=== PATIENT | female | born 1970 | race Caucasian/White ===

== ENCOUNTER 2024-05-07 17:28 | Emergency (ER) | payer OTHER, SELFPAY ==
[2024-05-07 17:36] VITALS: BP 216/142
[2024-05-07 18:01] LABS: Hematocrit 43.3 % (37.0-47.0); Hemoglobin 15.6 g/dL (12.0-16.0); Mean Corpuscular Hgb 30.2 pg (27.0-31.0); Mean Corpuscular Volume 83.9 fL (81.0-99.0); Mean Platelet Volume 8.4 fL (7.4-10.4); Platelet Count 285 10^3/uL (130-400); Red Blood Cell Count 5.16 10^6/uL (4.20-5.40); Red Cell Dist. Width 13.2 % (11.5-14.5); White Blood Cell Count 8.3 10^3/uL (4.8-10.8)
[2024-05-07 18:07] LABS: ALT (SGPT) 25 U/L (0-35); AST (SGOT) 32 U/L (14-36); Albumin 5.1 g/dl (3.5-5.0); Alkaline Phosphatase 95 U/L (38-126); Blood Urea Nitrogen 14 mg/dl (7-17); Calcium 10.3 mg/dl (8.4-10.2); Carbon Dioxide 26 mmol/L (22-30); Chloride 96 mmol/L (98-107); Glucose 96 mg/dl (70-99); Potassium 5.1 mmol/L (3.5-5.1); Sodium 136 mmol/L (135-145); Total Bilirubin 0.6 mg/dl (0.2-1.3); Total Protein 7.4 g/dl (6.3-8.2); eGFR > 60.00
[2024-05-07 18:16] LABS: Troponin I < 0.012 ng/ml
[2024-05-07 18:17] LABS: % Basophils 1.7 % (0-2); % Eosinophils 3.2 % (0-6); % Immature Granulocytes 0.1 % (0-0.5); % Monocytes 7.9 % (1.7-9.3); % Neutrophils 36.1 % (42.2-75.2); Absolute Basophils 0.1 10^3/uL (0-0.2); Absolute Eosinophils 0.3 10^3/uL (0-0.7); Absolute Lymphocytes 4.2 10^3/uL (1.2-3.4); Absolute Monocytes 0.7 10^3/uL (0.1-0.6); Nucleated Red Blood Cells % 0 %
[2024-05-07 18:22] VITALS: BP 187/114
--- NOTE | 2024-05-07 18:43 | ED.GENMED ---
History of Present Illness
General
Chief Complaint: Blood Pressure Problem
Source: patient
Exam Limitations: none
Time Seen by Provider: 05/07/24 18:03
History of Present Illness
History of Present Illness:
This is a 53 year old female that comes in with c/o hypertension. States that she was at the Neurologist and her BP was elevated. states that her Family doctor told her to come to the ER States that she has a history of Migraines and always has a
headache. States that her headache is on the left sided on the head in the temporal area. Denies any fever, chills, chest pain, SOB, abd pain, nausea, vomiting, diarrhea, dizziness, urinary burning.
Past History
Past History
ED Past Medical History: Asthma, HTN, Hypercholesterolemia, Other (Diverticulitis, Neck pain, trigeminal neuralgia, Sinusitis) and Other (Trigeminal Neuralgia)
ED Past Surgical History: Other (Jeremiah foot surg. Sinus surgery Partial Left colectomy, Microvascular decompression)
Social History
Tobacco: Smoker
Alcohol: None
Personal:
Living: with family
Employment: Employed
Family History
Family History: CAD
Review of Systems
Review of Systems
All Other Systems: ROS reviewed and negative except as documented in HPI and ROS
Constitutional: Reports no symptoms; Denies fever or chills
EENT: Reports no symptoms
Respiratory: Reports no symptoms; Denies cough or trouble breathing
Cardiac: Reports no symptoms; Denies chest pain
ABD/GI: Reports no symptoms; Denies abdominal pain, nausea, vomiting or diarrhea
: Reports no symptoms; Denies dysuria, frequency or urgency
Musculoskeletal: Reports no symptoms
Skin: Reports no symptoms
Neurological: Reports headache; Denies dizzy
Psychiatric: Reports no symptoms
Phy Exam
General Physical Exam
General Presentation: well appearing and no apparent distress
General age: appears stated age
General Skin: warm and dry
General Habitus: normal
General Mental: alert
General Hydration: dry mucous membranes
ENT Exam
ENT Exam: TM's normal, pharynx normal and neck supple
Eye Exam
Eye Exam: EOMI
Cardiovascular Exam
Cardiovascular Exam: regular rate/rhythm, no edema, no murmur and normal peripheral pulses
Pulmonary Exam
Pulmonary Exam: lungs clear, no respiratory distress, no rales, chest non tender, no crackles, no rhonchi, no wheezing and no cough
Gastrointestinal Exam
Gastrointestinal Exam: normal bowel sounds, non tender, soft, no organomegaly, no pulsatile mass and non distended
Musculoskeletal Exam
Musculoskeletal Exam: full ROM and no edema
Skin Exam
Skin Exam: normal color, warm/dry, no rash and no petechia
Psychiatric Exam
Psychiatric Exam: normal mood/affect
Course
Orders/Labs/Results
Orders:
Orders
05/07/24 17:39
ECG [Electrocardiogram (*1)] Urgent
Reason for Study: Hypertension, Benign
CT Head W/o Iv Contrast Urgent
Comment:
Reason For Exam: high blood pressure with headache
05/07/24 17:40
EKG- Treatment ONCE
05/07/24 17:44
Complete Blood Count/With Diff Urgent
Comprehensive Metabolic Panel Urgent
Troponin I Urgent
05/07/24 18:42
HydrALAZINE [Apresoline] 5 mg IV NOW STA
Metoprolol [Lopressor] 25 mg PO NOW STA
05/07/24 19:16
HydrALAZINE [Apresoline] 5 mg IV NOW STA
Abnormal Lab Results
05/07/24
17:44
Absolute Lymphs (auto) 4.2 H 10^3/uL
(1.2-3.4)
Absolute Monos (auto) 0.7 H 10^3/uL
(0.1-0.6)
Neutrophils % 36.1 L %
(42.2-75.2)
Chloride 96 L mmol/L
(98-107)
Calcium 10.3 H mg/dl
(8.4-10.2)
Albumin 5.1 H g/dl
(3.5-5.0)
05/07/24 17:44
05/07/24 17:44
Chloride slightly low. Troponin <0.012
Vital Signs
Initial and Last Documented VS:
Initial Vital Signs
Temp Pulse Resp BP Pulse Ox
98.2 F 99 18 216/142 98
05/07/24 17:36 05/07/24 17:36 05/07/24 17:36 05/07/24 17:36 05/07/24 17:36
Last Documented Vital Signs
Temp Pulse Resp BP Pulse Ox
98.2 F 86 18 171/108 98
05/07/24 17:36 05/07/24 19:29 05/07/24 17:36 05/07/24 19:29 05/07/24 18:22
MDM/Problems Addressed
Differential Diagnosis Includes:
Hypertension,
MDM/Problems Addressed:
This is a 53 year old female that comes in with c/o Hypertension. States that she was in the neurologist office and she was told to come to the ER as her BP was elevated. States that she has a headache but she always has a headache .
will get labs, CT head and medication for Hypertension
Back into see patient. Explained that her Bp is down o 147/85. will Add Hydralazine to patient medication. Patient is to follow up with the family doctor for recheck and explained that they may change her medication as they see fit. Will discharge
patient home.
Chronic conditions affecting care: HTN and Other (Migraines)
Acute Exacerbation and/or Progression of Chronic Illness: HTN
*Radiology
Radiology exam reviewed: radiology read reviewed (CT head-No acute intracranial abnormality noted)
*Pulse Oximetry
Patient hypoxic: no
*EKG
Interpreted by ED Provider?: Yes
Heart Rate: 87
Rate: normal
Rhythm: sinus
[place]: normal axis
Interval: normal interval
QRS Pattern: normal QRS
Ischemia: no ischemia
*Gas Distribution Supervisor Interpretation
Rate: normal
Heart Rate: 89
Rhythm: sinus
*Critical Care Note
Total Time (30-74mins, 75-104mins- exclusive of procedures): Not Applicable
ED Attending Note
-
Portions of this chart may have been created with voice recognition software.� Occasional wrong word or��sound alike� substitutions may have occurred due to the inherent limitations of voice recognition software.
Discharge Plan
Departure
Patient Disposition: Home (Routine Discharge)
Date of Disposition: 05/07/24
Time of Disposition: 20:03
Patient with high blood pressure during this ER visit?: Yes
Condition: Good
Covid-19: Not Applicable
Discharge Problem:
Hypertension
Instructions: High Blood Pressure (DC), BLOOD PRESSURE
Prescriptions:
New
hydralazine 10 mg tablet
5 mg PO TID Qty: 15 0RF
No Action
oxcarbazepine 300 MG tablet
600 mg PO BID
oxycodone 5 MG tablet
5 mg PO .5X DAILY
Patient Comments:
05/07/24: last filled 04/25/24 for 150 tablets over 30 days
docosahexaenoic acid-epa 1 CAP capsule
1 cap PO DAILY
Glucosamine Sulf-Chondroitin 1 EACH capsule
1 cap PO DAILY
Estroven 155 MG capsule
1 cap PO HS
carvedilol 6.25 mg Tablet
6.25 mg PO BID
Theragen Tablet
1 tab PO DAILY
meloxicam 7.5 mg Tablet
7.5 mg PO BIDPRN PRN (Reason: moderate pain)
alprazolam 0.25 mg Tablet
0.25 mg PO DAILYPRN PRN (Reason: anxiety)
Patient Comments:
05/07/24: last filled 11/20/22 for 90 tablets over 30 days at [facility] per [facility].
buspirone 10 mg Tablet
10 mg PO BID
vitamin B complex Tablet
1 tab PO DAILY
vitamin E 268 mg (400 unit) Capsule
268 mg PO HS
loratadine [Claritin] 10 mg Tablet
10 mg PO DAILY
losartan-hydrochlorothiazide 100-12.5 mg Tablet
1 tab PO DAILY
magnesium oxide 200 mg magnesium Tablet
200 mg PO HS
Nurtec ODT 75 mg Tablet,Disintegrating
75 mg PO DAILYPRN PRN (Reason: migraine)
Neuriva Original 100-100 mg Capsule
1 cap PO DAILY
Referrals:
UNKNOWN - PT DOES,NOT KNOW [Unknown Provider] -
Activity Restrictions/Additional Instructions:
As discussed our blood work and CT of the head are normal. Your BP has come down with medication. You have had a scrip sent to your Pharmacy. Please take this 3 times daily with your other medication. Follow up with the family doctor in the next 2-3
days to have your blood pressure recheck. They may decided to change your medication. Monitor your blood pressure at home. Please sit in a chair with feet flat on the floor and your arm level with your hear for 5 min before taking your blood
pressure. IF YOU HAVE HYPERTENSION AGAIN OR YOU HAVE ANY OTHER CONCERNS PLEASE RETURN TO THE EMERGENCY ROOM.
Interventions
Interventions:
*Risk Screen - Suicide Last Done: 05/07/24 17:36
*General Assessment Last Done: 05/07/24 17:36
*Neglect/Abuse Screening Last Done: 05/07/24 17:36
ED- Cardiac Assessment Last Done: 05/07/24 18:23
ED- Neurological Assessment Last Done: 05/07/24 18:23
ED- Pulmonary Assessment Last Done: 05/07/24 18:24
Discharge Date and Time
Print Language: HUNGARIAN
[2024-05-07] MEDS: LOPRESSOR 25 MG PO (18:53)
[2024-05-07] MEDS: APRESOLINE 5 MG IV ×2 (18:55→19:29)
[2024-05-07 19:14] VITALS: BP 159/101
[2024-05-07 19:59] VITALS: BP 150/88
== END 2024-05-07 20:13 | disposition home or self-care (01) ==
LOC: EMR 17:28
PROVIDERS: Emergency Medicine; EMERGENCY PHYSICIAN Emergency Medicine; FAMILY PHYSICIAN Family Medicine
DX: I10 Essential (primary) hypertension (principal); J45.909 Unspecified asthma, uncomplicated; E78.00 Pure hypercholesterolemia, unspecified; F17.200 Nicotine dependence, unspecified, uncomplicated; Z82.49 Family history of ischemic heart disease and other diseases of the circulatory system; Z90.49 Acquired absence of other specified parts of digestive tract
CPT/HCPCS: 99284; 70450; 80053; 84484; 85025; 93005

== ENCOUNTER 2024-08-10 15:43 | Emergency (ER) | payer OTHER, SELFPAY ==
[2024-08-10 15:47] VITALS: BP 221/125
[2024-08-10 16:20] VITALS: BP 216/122
--- NOTE | 2024-08-10 17:18 | ED.GENMED ---
History of Present Illness
General
Chief Complaint: Blood Pressure Problem
Source: patient
Exam Limitations: none
Time Seen by Provider: 08/10/24 16:57
Nursing documentation reviewed up to this point in time: agreed with
History of Present Illness
History of Present Illness:
Patient to ED with complaint of elevated blood pressure. States she has a long history of hypertension, reports compliance with her medications. States she developed URI symptoms on
Past History
Past History
ED Past Medical History: Asthma, HTN, Hypercholesterolemia, Other (Diverticulitis, Neck pain, trigeminal neuralgia, Sinusitis) and Other (Trigeminal Neuralgia)
ED Past Surgical History: Other (Jeremiah foot surg. Sinus surgery Partial Left colectomy, Microvascular decompression)
Social History
Tobacco: Smoker
Alcohol: None
Personal:
Living: with family
Employment: Employed
Family History
Family History: CAD
Phy Exam
General Physical Exam
General Presentation: well appearing and no apparent distress
General age: appears stated age
General Skin: warm and dry
General Habitus: normal
General Mental: alert
Cardiovascular Exam
Cardiovascular Exam: regular rate/rhythm and no edema
Pulmonary Exam
Pulmonary Exam: lungs clear and no respiratory distress
Neurological Exam
Neurological Exam: alert and oriented x3
Musculoskeletal Exam
Musculoskeletal Exam: full ROM
Skin Exam
Skin Exam: normal color, warm/dry and no rash
Psychiatric Exam
Psychiatric Exam: normal mood/affect
Course
Orders/Labs/Results
Orders:
Orders
08/10/24 15:45
EKG [Electrocardiogram (*1)] Urgent
Reason for Study: Abnormal EKG
08/10/24 15:46
EKG- Treatment ONCE
08/10/24 17:13
HydrALAZINE [Apresoline] 10 mg IV NOW STA
08/10/24 17:14
CR Chest - 2 Views Urgent
Comment:
Reason For Exam: [email or web address]
08/10/24 17:15
Complete Blood Count/With Diff Urgent
Comprehensive Metabolic Panel Urgent
Troponin I Urgent
08/10/24 17:17
Ipratropium/Albuterol Sulfate [Duoneb] 3 ml INH R NOW STA
08/10/24 17:42
0.9% Sodium Chloride 1000 ml [Nss] 1,000 ml IV BOLUS
08/10/24 17:45
COVID-19 Antigen Urgent
Source: Nasal Swab
Influenza A+B Rapid Molecular Urgent
ZEENAT Source: Nasal Swab
Specimen Description:
Abnormal Lab Results
08/10/24
17:15
Hgb 16.4 H g/dL
(12.0-16.0)
Absolute Monos (auto) 0.7 H 10^3/uL
(0.1-0.6)
Monocytes % 10.4 H %
(1.7-9.3)
Sodium 126 L mmol/L
(135-145)
Chloride 90 L mmol/L
(98-107)
Creatinine 0.5 L mg/dL
(0.6-1.0)
08/10/24 17:15
08/10/24 17:15
Vital Signs
Initial and Last Documented VS:
Initial Vital Signs
Pulse Resp BP Pulse Ox
85 19 221/125 94
08/10/24 15:47 08/10/24 15:47 08/10/24 15:47 08/10/24 15:47
Last Documented Vital Signs
Pulse Resp BP Pulse Ox
88 15 188/102 98
08/10/24 19:06 08/10/24 19:06 08/10/24 19:06 08/10/24 19:06
*Critical Care Note
Total Time (30-74mins, 75-104mins- exclusive of procedures): Not Applicable
Update Note
Update Note:
Patient to ED for elevated blood pressure readings. She is asymptomatic of elevated BP. Sent to ED by after eval there today. Reports complliance with her current regimen of Carvidolol BID, Losartan/HCTZ, and Hydralazine. She was here in May
for same. hydralazine started at that time. She has been checking her blood pressure since and reports it has remained high but has not followed up with her PCP. Given additional dose of Hydralazine in ED. BP now 180/100. Will recommend
increasing hydralazine to 20mg tid. Labs reviewed. Na 126. No prior history of hyponatremia. She reports diarrhea x 24 hours. SHe was placed on azithromycin by 4 days ago for URI symptoms and has had diarrhea since. Instructed to refrain
from last dose. Given IVF in dept. Will follow up with PCP in AM. Repeat labs in 2 days. Case discussed with Nate Lopez who agrees with findings and plan.
ED Attending Note
-
Portions of this chart may have been created with voice recognition software.� Occasional wrong word or��sound alike� substitutions may have occurred due to the inherent limitations of voice recognition software.
Discharge Plan
Departure
Patient Disposition: Home (Routine Discharge)
Date of Disposition: 08/10/24
Time of Disposition: 20:00
Patient with high blood pressure during this ER visit?: No
Condition: Good
Covid-19: Not Applicable
Discharge Problem:
Hypertension, Acute hyponatremia
Instructions: High Blood Pressure (DC), Hyponatremia
Prescriptions:
New
hydralazine 10 mg tablet
20 mg PO TID Qty: 84 0RF
No Action
oxcarbazepine 300 MG tablet
600 mg PO BID
oxycodone 5 MG tablet
5 mg PO 5/D
Patient Comments:
05/07/24: last filled 04/25/24 for 150 tablets over 30 days
docosahexaenoic acid-epa 1 CAP capsule
1 cap PO DAILY
Glucosamine Sulf-Chondroitin 1 EACH capsule
1 cap PO DAILY
Estroven 155 MG capsule
1 cap PO HS
carvedilol 6.25 mg Tablet
6.25 mg PO BID
Theragen Tablet
1 tab PO DAILY
meloxicam 7.5 mg Tablet
7.5 mg PO BIDPRN PRN (Reason: moderate pain)
vitamin B complex Tablet
1 tab PO DAILY
vitamin E 268 mg (400 unit) Capsule
268 mg PO HS
loratadine [Claritin] 10 mg Tablet
10 mg PO DAILY
losartan-hydrochlorothiazide 100-12.5 mg Tablet
1 tab PO DAILY
magnesium oxide 200 mg magnesium Tablet
200 mg PO HS
Nurtec ODT 75 mg Tablet,Disintegrating
75 mg PO DAILYPRN PRN (Reason: migraine)
Neuriva Original 100-100 mg Capsule
1 cap PO DAILY
acetaminophen [Tylenol] 325 mg Tablet
650 mg PO Q6HPRN PRN (Reason: MILD PAIN)
azithromycin 250 mg Tablet
0 mg PO .COMPLEX
Rx Instructions:
For 250 mg dose pack: take 500 mg today (day 1), then 250 mg for 4 days (days 2-5)
Coricidin HBP Cold and Flu 2-325 mg Tablet
1 tab PO DAILYPRN PRN (Reason: COUGH)
guaifenesin [Mucinex] 600 mg Tablet Extended Release 12hr
600 mg PO BIDPRN PRN (Reason: COUGH)
hydralazine 10 mg tablet
10 mg PO TID
Referrals:
Krystyna Cortes DO [Family Provider] - Tomorrow
Activity Restrictions/Additional Instructions:
Increase Hydralazine to 20mg every 8 hours.
Interventions
Interventions:
*Risk Screen - Suicide Last Done: 08/10/24 15:47
*General Assessment Last Done: 08/10/24 15:47
*Neglect/Abuse Screening Last Done: 08/10/24 15:47
ED- Fall Risk Assessment Last Done: 08/10/24 16:10
*Nursing Disposition Last Done: 08/10/24 20:35
ED- Cardiac Assessment Last Done: 08/10/24 16:10
ED- Neurological Assessment Last Done: 08/10/24 16:10
ED- Pulmonary Assessment Last Done: 08/10/24 16:10
Discharge Date and Time
Discharge Date/Time: 08/10/24 20:50
Print Language: GRENADIAN
[2024-08-10 17:23] LABS: % Basophils 1.3 % (0-2); % Eosinophils 2.6 % (0-6); % Immature Granulocytes 0.3 % (0-0.5); % Lymphocytes 21.3 % (20.5-51.1); % Monocytes 10.4 % (1.7-9.3); % Neutrophils 64.1 % (42.2-75.2); Absolute Basophils 0.1 10^3/uL (0-0.2); Absolute Eosinophils 0.2 10^3/uL (0-0.7); Absolute Lymphocytes 1.5 10^3/uL (1.2-3.4); Absolute Monocytes 0.7 10^3/uL (0.1-0.6); Absolute Neutrophils 4.4 10^3/uL (1.4-6.5); Hematocrit 46.6 % (37.0-47.0); Hemoglobin 16.4 g/dL (12.0-16.0); Mean Corp Hgb Conc. 35.2 g/dL (33.0-37.0); Mean Corpuscular Hgb 30.6 pg (27.0-31.0); Mean Corpuscular Volume 86.9 fL (81.0-99.0); Mean Platelet Volume 8.6 fL (7.4-10.4); Nucleated Red Blood Cells % 0 %; Platelet Count 224 10^3/uL (130-400); Red Blood Cell Count 5.36 10^6/uL (4.20-5.40); Red Cell Dist. Width 12.5 % (11.5-14.5); White Blood Cell Count 6.9 10^3/uL (4.8-10.8)
[2024-08-10] MEDS: APRESOLINE 10 MG IV (17:24)
[2024-08-10] MEDS: DUONEB 3 ML INH (17:24)
[2024-08-10 17:40] LABS: ALT (SGPT) 28 U/L (0-35); AST (SGOT) 28 U/L (14-36); Albumin 4.7 g/dl (3.5-5.0); Alkaline Phosphatase 96 U/L (38-126); Blood Urea Nitrogen 9 mg/dl (7-17); Calcium 9.1 mg/dl (8.4-10.2); Carbon Dioxide 27 mmol/L (22-30); Chloride 90 mmol/L (98-107); Glucose 96 mg/dl (70-99); Potassium 4.2 mmol/L (3.5-5.1); Sodium 126 mmol/L (135-145); Total Bilirubin 0.5 mg/dl (0.2-1.3); Total Protein 7.1 g/dl (6.3-8.2); eGFR > 60.00
[2024-08-10 17:47] LABS: Troponin I < 0.012 ng/ml
[2024-08-10] MEDS: NSS 1000 IV (18:00)
[2024-08-10 18:17] LABS: COVID-19 Antigen Negative (Negative)
[2024-08-10 19:06] VITALS: BP 188/102
== END 2024-08-10 20:50 | disposition home or self-care (01) ==
LOC: EMR 15:43
PROVIDERS: Nurse Practitioner; EMERGENCY PHYSICIAN Student in an Organized Health Care Education/Training Program; FAMILY PHYSICIAN Family Medicine
DX: E87.1 Hypo-osmolality and hyponatremia (principal); I10 Essential (primary) hypertension; E78.00 Pure hypercholesterolemia, unspecified; J45.909 Unspecified asthma, uncomplicated; F17.200 Nicotine dependence, unspecified, uncomplicated; Z90.49 Acquired absence of other specified parts of digestive tract
CPT/HCPCS: 94640; 96374; 96361; 99284; 71046; 80053; 84484; 85025; 87502; 87811; 93005

== ENCOUNTER 2025-05-28 17:59 | Emergency (ER) | payer OTHER, SELFPAY ==
[2025-05-28 18:07] VITALS: BP 234/145
[2025-05-28 19:01] VITALS: BP 230/120
[2025-05-28] MEDS: REGLAN 10 MG IV (19:16)
[2025-05-28] MEDS: BENADRYL 25 MG IV (19:18)
[2025-05-28] MEDS: TRANDATE 10 MG IV (19:20)
[2025-05-28 19:22] VITALS: BP 170/101
[2025-05-28 19:23] LABS: Hematocrit 44.6 % (37.0-47.0); Hemoglobin 15.6 g/dL (12.0-16.0); Mean Corp Hgb Conc. 35.0 g/dL (33.0-37.0); Mean Corpuscular Volume 87.3 fL (81.0-99.0); Nucleated Red Blood Cells % 0 %; Platelet Count 302 10^3/uL (130-400); Red Cell Dist. Width 13.5 % (11.5-14.5)
[2025-05-28 19:24] VITALS: BMI 35.2
[2025-05-28 19:41] LABS: ALT (SGPT) 28 U/L (0-35); AST (SGOT) 30 U/L (14-36); Albumin 4.8 g/dl (3.5-5.0); Alkaline Phosphatase 99 U/L (38-126); Blood Urea Nitrogen 14 mg/dl (7-17); Calcium 9.7 mg/dl (8.4-10.2); Carbon Dioxide 28 mmol/L (22-30); Chloride 99 mmol/L (98-107); Estimated Creatinine Clearance > 125 ml/min; Glucose 98 mg/dl (70-99); Potassium 4.5 mmol/L (3.5-5.1); Sodium 132 mmol/L (135-145); Total Protein 7.3 g/dl (6.3-8.2); eGFR > 60.00
[2025-05-28 19:51] LABS: Troponin I 0.013 ng/ml
[2025-05-28 20:02] VITALS: BP 178/104
[2025-05-28 21:00] VITALS: BP 157/93
--- NOTE | 2025-05-28 21:51 | ED.GENMED ---
History of Present Illness
<DINORA Vazquez Last Filed: 05/29/25 02:01>
General
Chief Complaint: Blood Pressure Problem
Source: patient
Exam Limitations: none
Time Seen by Provider: 05/28/25 18:46
Nursing documentation reviewed up to this point in time: agreed with
History of Present Illness
History of Present Illness:
see MDM
Past History
<DINORA Vazquez Last Filed: 05/29/25 02:01>
Past History
ED Past Medical History: Asthma, HTN, Hypercholesterolemia, Other (Diverticulitis, Neck pain, trigeminal neuralgia, Sinusitis) and Other (Trigeminal Neuralgia)
ED Past Surgical History: Other ([facility] foot surg. Sinus surgery Partial Left colectomy, Microvascular decompression)
Social History
Tobacco: Smoker
Alcohol: None
Personal:
Living: with family
Employment: Employed
Family History
Family History: CAD
Review of Systems
<DINORA Vazquez Last Filed: 05/29/25 02:01>
Review of Systems
Allergies reviewed?: Yes
All Other Systems: Not applicable
Phy Exam
<DINORA Vazquez Last Filed: 05/29/25 02:01>
Physical Exam
Physical Exam:
GENERAL: Alert , in no apparent distress
HEAD: NCAT
EYE: pupils equal and reactive, no nystagmus, no photophobia
NECK: Supple,full rom, nontender
ENT: o/p clr, mmm.
CARDIAC: Regular rate and rhythm . no edema
LUNGS: Clear breath sounds bilaterally, no acute respiratory distress, no wheezes/rales/rhonchi
ABDOMEN: Soft, without focal tenderness, no r/g, no cvat
NEUROLOGICAL: Alert and orientedx 4, cn intact, no facial asymmetry, 5/5 strength in UE/LE, sensation intact, romberg neg, ambulates without assistance, neg pronator drift
SKIN: Warm and dry, skin intact.
MUSCULOSKELETAL: No edema, well perfused.
PSYCH: Normal and appropriate interaction.
Course
<Zakia Franco PA-C - Last Filed: 05/29/25 02:01>
Orders/Labs/Results
Orders:
Orders
05/28/25 18:12
Electrocardiogram (*1) Urgent
Reason for Study: Fatigue / Weakness
EKG- Treatment ONCE
05/28/25 19:05
CT Head & Neck Angio W/wo IV Urgent
Comment:
Reason For Exam: headache, neck pain, severely elevated bp
Diphenhydramine [Benadryl] 25 mg IV NOW STA
Labetalol HCl [Trandate] 10 mg IV NOW STA
Metoclopramide [Reglan] 10 mg IV NOW STA
05/28/25 19:11
Complete Blood Count/With Diff Urgent
Comprehensive Metabolic Panel Urgent
Troponin I Urgent
Abnormal Lab Results
05/28/25
19:11
Absolute Lymphs (auto) 4.2 H 10^3/uL
(1.2-3.4)
Absolute Monos (auto) 0.8 H 10^3/uL
(0.1-0.6)
Neutrophils % 38.4 L %
(42.2-75.2)
Sodium 132 L mmol/L
(135-145)
05/28/25 19:11
05/28/25 19:11
Vital Signs
Initial and Last Documented VS:
Initial Vital Signs
Temp Pulse Resp BP Pulse Ox
36.4 C 92 18 234/145 98
05/28/25 18:07 05/28/25 18:07 05/28/25 18:07 05/28/25 18:07 05/28/25 18:07
Last Documented Vital Signs
Temp Pulse Resp BP Pulse Ox
36.4 C 82 18 157/93 98
05/28/25 18:07 05/28/25 19:20 05/28/25 18:07 05/28/25 21:00 05/28/25 21:53
<Nils Nam MD - Last Filed: 05/28/25 23:14>
Orders/Labs/Results
Orders:
Orders
05/28/25 18:12
Electrocardiogram (*1) Urgent
Reason for Study: Fatigue / Weakness
EKG- Treatment ONCE
05/28/25 19:05
CT Head & Neck Angio W/wo IV Urgent
Comment:
Reason For Exam: headache, neck pain, severely elevated bp
Diphenhydramine [Benadryl] 25 mg IV NOW STA
Labetalol HCl [Trandate] 10 mg IV NOW STA
Metoclopramide [Reglan] 10 mg IV NOW STA
05/28/25 19:11
Complete Blood Count/With Diff Urgent
Comprehensive Metabolic Panel Urgent
Troponin I Urgent
Abnormal Lab Results
05/28/25
19:11
Absolute Lymphs (auto) 4.2 H 10^3/uL
(1.2-3.4)
Absolute Monos (auto) 0.8 H 10^3/uL
(0.1-0.6)
Neutrophils % 38.4 L %
(42.2-75.2)
Sodium 132 L mmol/L
(135-145)
05/28/25 19:11
05/28/25 19:11
Vital Signs
Initial and Last Documented VS:
Initial Vital Signs
Temp Pulse Resp BP Pulse Ox
36.4 C 92 18 234/145 98
05/28/25 18:07 05/28/25 18:07 05/28/25 18:07 05/28/25 18:07 05/28/25 18:07
Last Documented Vital Signs
Temp Pulse Resp BP Pulse Ox
36.4 C 82 18 157/93 98
05/28/25 18:07 05/28/25 19:20 05/28/25 18:07 05/28/25 21:00 05/28/25 21:53
<Zakia Franco PA-C - Last Filed: 05/29/25 02:01>
MDM/Problems Addressed
Differential Diagnosis Includes:
see MDM
MDM/Problems Addressed:
Note:
CHIEF COMPLAINT(S)
Severe headache with associated neck pain and elevated blood pressure.
HISTORY OF PRESENT ILLNESS
The patient, a female with a history of hypertension since age 20, presents with a severe headache and elevated blood pressure. The headache began gradually yesterday afternoon and has progressed. It is described as a global pressure-like pain,
worse in the back of the head, described by the patient as a 'solid nine' on a pain scale. The patient denies visual disturbances, nausea, or vomiting. also has some b/l neck pain, but she has h/o arthritis
no trauma.
The patient does not regularly monitor her blood pressure at home and reports missing doses of Hydralazine. She denies any recent head trauma, blurred vision, or symptoms suggestive of a stroke
The patient has a history of fairly-controlled hypertension with her current medications but reports occasional elevated readings.
The patient took Tylenol for her headache without relief and declined to use her prescribed migraine medication as this headache felt different from her usual migraines. She denies taking any decongestants due to their potential effect on blood
pressure.
does not usually get headaches with her HTN
PAST MEDICAL AND SURGICAL HISTORY
Hypertension since age 20.
Chronic neck arthritis.
History of rib fractures in March.
ALLERGIES
Allergic to Augmentin and amoxicillin, resulting in hives.
MEDICATIONS
Carvedilol 6.25 mg, two tablets twice daily.
Hydralazine 20 mg twice daily.
Losartan-Hydrochlorothiazide 100/12.5 mg once daily.
Occasional use of Tylenol for pain relief.
REVIEW OF SYSTEMS
- Head: Severe pressure-like headache, worse in the back of the head.
- Neck: Significant pain, different from chronic arthritis-related pain.
- Back: Mild lower back pain.
- Vision: No blurred or double vision.
- Neurological: Denies confusion or imbalance, occasional mild aphasia noted.
PHYSICAL EXAM
- GENERAL: Alert , in no apparent distress
HEAD: NCAT
EYE: pupils equal and reactive, no nystagmus, no photophobia
NECK: Supple,full rom, nontender
ENT: o/p clr, mmm.
CARDIAC: Regular rate and rhythm . no edema
LUNGS: Clear breath sounds bilaterally, no acute respiratory distress, no wheezes/rales/rhonchi
ABDOMEN: Soft, without focal tenderness, no r/g, no cvat
NEUROLOGICAL: Alert and orientedx 4, cn intact, no facial asymmetry, 5/5 strength in UE/LE, sensation intact, romberg neg, ambulates without assistance, neg pronator drift
SKIN: Warm and dry, skin intact.
MUSCULOSKELETAL: No edema, well perfused.
PSYCH: Normal and appropriate interaction.
- Nursing notes reviewed and vital signs reviewed.
PROBLEM LIST
Acute:
- Severe headache with associated neck pain.
Chronic:
- Hypertension.
- Chronic neck arthritis.
PLAN
- Administer pain management for headache relief.
- Adjust antihypertensive medications to effectively lower blood pressure.
- Perform head imaging with contrast to rule out aneurysm or other intracranial abnormalities.
- Consider cardiology consultation for potential adjustment of hypertension management.
DIFFERENTIAL DIAGNOSIS
The Differential Diagnosis includes, in no particular order and is not limited to:
1. Hypertensive crisis
2. Migraine headache
3. Tension-type headache
4. Subarachnoid hemorrhage
5. Meningitis
6. Cervical spondylosis-related headache
7. Intracranial hemorrhage
8. Giant cell arteritis
9. Intracranial mass
10. Acute angle-closure glaucoma
CARE-UPDATE
05/28/25 - 21:46
Gradual onset of a global headache, also posterior and into her neck since yesterday with elevated blood pressure readings more than usual. Patient has had previous ED visits for hypertensive urgency as well in the past. She is on medication but
often times forgets her hydralazine mid afternoon. She took an extra dose today due to the elevated readings of 220s over 120s at home. Patient has not had any vision changes, weakness, paresthesias, sudden thunderclap headache, dizziness.
She looks quite well on exam but had blood pressures of 220/145 on arrival. Patient has no chest discomfort. Her neuroexam was intact. She was given medication for migraine headache, Reglan and Benadryl as well as IV labetalol and her blood
pressure greatly improved to 150/90. Her headache resolved. She was snoring quite loudly and I believe she has sleep apnea
which may be contributing to elevated blood pressure. Current blood pressure reading is 157/93. Recent CTA results were normal, showing no errors or infections. Consideration was given to increasing Carvedilol dosage, as some patients are on higher
doses, but further consultation with a licensing registration examiner is recommended to assess treatment adjustments. Patient dissatisfied with previous cardiology experience; advised to seek a new consultation to better manage blood pressure. Discussed the potential
need for a CPAP machine to address sleep apnea symptoms.
<Zakia Franco PA-C - Last Filed: 05/29/25 02:01>
*Pulse Oximetry
SaO2: 98
Oxygen Mode of Delivery: Room air
Patient hypoxic: no (98)
*Critical Care Note
Total Time (30-74mins, 75-104mins- exclusive of procedures): Not Applicable
ED Attending Note
<Zakia Franco PA-C - Last Filed: 05/29/25 02:01>
-
Portions of this chart may have been created with voice recognition software.� Occasional wrong word or��sound alike� substitutions may have occurred due to the inherent limitations of voice recognition software.
<Nils Nam MD - Last Filed: 05/28/25 23:14>
ED Attending Note
Patient seen and examined by attending physician: Yes
ED Attending Note:
I have seen and evaluated the patient with a [id number] encounter. I have spoken to the advance practicer provider and involved in the medical history, the physical exam, medical decision making.
Evaluation and management service: agree unless noted differently below.
Results interpretation: agree unless noted differently below.
Focused HPI: 54-year-old female with history of hypertension on multiple medications presents to the ER for evaluation of headache and poorly controlled blood pressure. She reports a frontal headache that radiates towards the occipital region and
neck. She describes the pain as a intense pressure. No clear triggering or relieving factors noted. Denies any associated change in her vision or speech, focal weakness or numbness in the extremities. No chest pain or shortness of breath. She
notes that her blood pressures have been markedly elevated recently despite compliance with her medications. Denies recent stress, dietary indiscretions, or medication adjustments.
Physical exam: Awake and alert nontoxic-appearing. Markedly hypertensive. Cranial nerves are intact 2 through 12, speech fluid without dysarthria or aphasia, no limb ataxia, motor and sensory intact proximally distally in all extremities. No
cardiac rubs gallops or murmurs and lungs sound clear bilaterally. No JVD. Not edematous.
Medical Decision Makin-year-old female presents with headache and poorly controlled blood pressure. Vitals and exam as above. CBC and CMP unremarkable. EKG nonischemic. Troponin negative. CTA head and neck negative for any acute
abnormalities. Patient was treated with labetalol as well as some Reglan/Benadryl for headache. Symptoms improved, blood pressure greatly improved. Plan to discharge, increased hydralazine. Close outpatient follow-up
Discharge Plan
Departure
Patient Disposition: Home (Routine Discharge)
Date of Disposition: 05/28/25
Time of Disposition: 21:52
Patient with high blood pressure during this ER visit?: Yes
Condition: Fair
Covid-19: Not Applicable
Discharge Problem:
Headache, Hypertensive urgency
Instructions: High Blood Pressure (DC), Headache, Adult (DC)
Prescriptions:
No Action
oxcarbazepine 300 MG tablet
600 mg PO BID
oxycodone 5 MG tablet
5 mg PO 5/D
Patient Comments:
05/07/24: last filled 04/25/24 for 150 tablets over 30 days
docosahexaenoic acid-epa 1 CAP capsule
1 cap PO DAILY
Glucosamine Sulf-Chondroitin 1 EACH capsule
1 cap PO DAILY
Estroven 155 MG capsule
1 cap PO HS
carvedilol 6.25 mg Tablet
6.25 mg PO BID
Theragen Tablet
1 tab PO DAILY
meloxicam 7.5 mg Tablet
7.5 mg PO BIDPRN PRN (Reason: moderate pain)
vitamin B complex Tablet
1 tab PO DAILY
vitamin E 268 mg (400 unit) Capsule
268 mg PO HS
loratadine [Claritin] 10 mg Tablet
10 mg PO DAILY
losartan-hydrochlorothiazide 100-12.5 mg Tablet
1 tab PO DAILY
magnesium oxide 200 mg magnesium Tablet
200 mg PO HS
Nurtec ODT 75 mg Tablet,Disintegrating
75 mg PO DAILYPRN PRN (Reason: migraine)
Neuriva Original 100-100 mg Capsule
1 cap PO DAILY
acetaminophen [Tylenol] 325 mg Tablet
650 mg PO Q6HPRN PRN (Reason: MILD PAIN)
azithromycin 250 mg Tablet
0 mg PO .COMPLEX
Rx Instructions:
For 250 mg dose pack: take 500 mg today (day 1), then 250 mg for 4 days (days 2-5)
Coricidin HBP Cold and Flu 2-325 mg Tablet
1 tab PO DAILYPRN PRN (Reason: COUGH)
guaifenesin [Mucinex] 600 mg Tablet Extended Release 12hr
600 mg PO BIDPRN PRN (Reason: COUGH)
hydralazine 10 mg tablet
10 mg PO TID
hydralazine 10 mg tablet
20 mg PO TID Qty: 84 0RF
Referrals:
Krystyna Cortes DO [Family Provider, Family Practice] - Follow up in 2-3 days
Activity Restrictions/Additional Instructions:
You need to take your hydralazine 3 times a day for now until you see your family doctor. Please call for a follow-up appointment. Also call for cardiology consult to better manage your blood pressure. You do snore and could have sleep apnea,
please schedule a sleep study. Sleep apnea untreated will continue to raise your blood pressure and make it hard to control.
Return to the ER for any significant worsening of symptoms, severe headache, chest pain shortness of breath etc. You did have a CAT scan that did not show any significant abnormalities in your vasculature.
Interventions
Interventions:
*Risk Screen - Suicide Last Done: 05/28/25 18:10
*General Assessment Last Done: 05/28/25 18:10
*Neglect/Abuse Screening Last Done: 05/28/25 18:10
*ED- Fall Risk Assessment Last Done: 05/28/25 22:37
*ED COVID-19 Vaccine History Last Done: 05/28/25 18:10
*ED Influenza Vaccine History Last Done: 05/28/25 18:10
*Nursing Disposition Last Done: 05/28/25 22:37
ED- Cardiac Assessment Last Done: 05/28/25 19:25
ED- Neurological Assessment Last Done: 05/28/25 19:25
ED- Pulmonary Assessment Last Done: 05/28/25 19:25
Discharge Date and Time
Discharge Date/Time: 05/28/25 22:38
Print Language: [id number]
== END 2025-05-28 22:38 | disposition home or self-care (01) ==
LOC: EMR 17:59
PROVIDERS: Physician Assistant; EMERGENCY PHYSICIAN Emergency Medicine; FAMILY PHYSICIAN Family Medicine
DX: I16.0 Hypertensive urgency (principal); R51.9 Headache, unspecified; E78.00 Pure hypercholesterolemia, unspecified; I10 Essential (primary) hypertension; J45.909 Unspecified asthma, uncomplicated; F17.200 Nicotine dependence, unspecified, uncomplicated; Z88.0 Allergy status to penicillin; Z79.899 Other long term (current) drug therapy
CPT/HCPCS: 96374; 96375; 99284; 70496; 70498; 80053; 84484; 85025; 93005; Q9967